=== PATIENT | male | born 1955 | race Caucasian/White ===

== ENCOUNTER 2021-11-16 08:44 | Outpatient (CLI) | payer MEDICARE, BC, SELFPAY | END 2021-11-16 08:45 | disposition home or self-care (01) | LOC: MRI 08:49 | PROVIDERS: Visit Provider Internal Medicine | DX: C61 Malignant neoplasm of prostate (principal); C79.51 Secondary malignant neoplasm of bone; R97.21 Rising PSA following treatment for malignant neoplasm of prostate | CPT/HCPCS: 73223; A9575 ==

== ENCOUNTER 2021-12-22 09:00 | Outpatient (RCR) | payer MEDICARE, BC, SELFPAY | END 2022-04-26 09:43 | disposition home or self-care (01) | PROVIDERS: Visit Provider Physician Assistant | DX: N39.3 Stress incontinence (female) (male) (principal); Z51.89 Encounter for other specified aftercare | CPT/HCPCS: 97110; 97535 ==